=== PATIENT | male | born 1945 | race Caucasian/White ===

== ENCOUNTER 2017-12-01 06:12 | Day surgery (SDC) | payer OTHER ==
[~2017-12-01] VITALS: Ht 172.7 cm; Wt 68.0 kg
[2017-12-01] MEDS ORDERED: FLUT1INH INH (06:53)
[2017-12-01] MEDS ORDERED: ASPI-183 PO (06:53)
[2017-12-01] MEDS ORDERED: AMLO5TAB2 PO (06:53)
[2017-12-01] MEDS ORDERED: NORC5TAB (06:53)
[2017-12-01] MEDS ORDERED: TUMS500C CHEW (06:53)
[2017-12-01 07:00] VITALS: BP 137/80; PULSE 72; RESP 18; TEMP 97.5; O2SAT 99
[2017-12-01] MEDS ORDERED: SODIUM CHLOR 0.45% 1000 ML INJ 1,000 ML IV SCH (07:30)
[2017-12-01] MEDS ORDERED: RESP: LIDOCAINE HCL 4% PF 5 ML NEB NEB SCH (07:30)
[2017-12-01] MEDS ORDERED: LACTATED RINGER'S 1000 ML IV PRN (07:30)
[2017-12-01] MEDS ORDERED: INSULIN HUMAN REGULAR 1,000 UNITS/10 ML VIAL SQ PRN (07:30)
[2017-12-01] MEDS ORDERED: POVIDONE IODINE 5% (ANTISEPSIS KIT) 4 APPLICATIONS EACH NARE PRN (07:30)
[2017-12-01] MEDS ORDERED: SODIUM CHLORID 0.9% 500 ML IV PRN (07:30)
[2017-12-01] MEDS ORDERED: CHLORHEXIDINE GLUCONATE 2 % 1 PACK (2 CLOTHS) TOPICAL PRN (07:30)
[2017-12-01] MEDS ORDERED: RESP: ALBUTEROL 2.5 MG/3 ML NEB (SCH) INH (07:30)
[2017-12-01] MEDS ORDERED: METOPROLOL TARTRATE 25 MG TAB PO PRN (07:30)
[2017-12-01 07:35] LABS: AUTOMATED NEUTROPHIL # 3.6 TH/MM3 (1.8-7.7); BASOPHIL % 0.6 % (0.0-2.0); EOSINOPHIL # 0.2 TH/MM3 (0-0.4); EOSINOPHIL % 2.7 % (0.0-4.0); HEMATOCRIT 46.8 % (39.0-51.0); HEMOGLOBIN 16.5 GM/DL (13.0-17.0); LYMPH % 27.6 % (9.0-44.0); LYMPHOCYTE # 1.6 TH/MM3 (1.0-4.8); MEAN CELL VOLUME 105.3 FL (80.0-100.0); MEAN CORPUSCULAR HEMOGLOBIN 37.2 PG (27.0-34.0); MEAN CORPUSCULAR HGB CONC 35.3 % (32.0-36.0); MEAN PLATELET VOLUME 7.9 FL (7.0-11.0); MONO % 8.2 % (0.0-8.0); MONOCYTE # 0.5 TH/MM3 (0-0.9); NEUT % 60.9 % (16.0-70.0); PLATELET COUNT 184 TH/MM3 (150-450); RED BLOOD COUNT 4.45 MIL/MM3 (4.50-5.90); RED CELL DISTRIBUTION WIDTH 13.6 % (11.6-17.2); WHITE BLOOD COUNT 5.9 TH/MM3 (4.0-11.0)
[2017-12-01 07:48] LABS: PROTHROMBIN TIME - PATIENT 9.7 SEC (9.8-11.6)
[2017-12-01 08:05] LABS: BICARBONATE 25.1 MEQ/L (21.0-32.0); CALCIUM 9.2 MG/DL (8.5-10.1); CREATININE 1.1 MG/DL (0.60-1.30)
[2017-12-01] MEDS ORDERED: DO NOT ADM ANY ANTICOAGULANT DRUGS PRN (08:27)
--- NOTE | 2017-12-01 08:30 | MP ---
cc: Selma Hahn MD DATE OF OPERATION: 12/01/2017 PROCEDURE PERFORMED: Fiberoptic bronchoscopy flexible REASON FOR BRONCHOSCOPY: Hemoptysis, rule out underlying malignancy or chronic inflammatory process or other. PROCEDURE NOTE: Fiberoptic bronchoscopy performed via LMA. Vocal cords are intact. The trachea is mildly hyperemic. The dante is sharp. The right main stem bronchus, right upper, middle, and lower lobe, left main bronchus, left upper and lower lobe without obstruction or mass lesion seen. Some hyperemia of the left lower lobe noted, but no active bleeding identified. Washings from both sides of the tracheobronchial tree obtained for routine TB, fungal cultures, as well as cytological exam. Cytologic brush biopsies left lower lobe obtained for cytological exam. Procedure well tolerated. The patient transferred to the recovery room in stable condition. IMPRESSION: 1. Mild tracheobronchitis. 2. No obstruction, no mass lesion. 3. No active bleeding. 4. Samples obtained as above. 5. The procedure was well tolerated. 6. The patient was transferred to recovery in stable condition. Selma Hahn MD WWW/DL , 08:20 AM , 08:29 AM
[2017-12-01] MEDS ORDERED: *RESP: ALBUTEROL 2.5 MG/3 ML NEB (PRN) PERIprocedural Use ONLY NEB ONE (08:38)
[2017-12-01 09:00] VITALS: BP 118/76; PULSE 80; RESP 18; TEMP 97.5; O2SAT 94
[2017-12-01 09:15] VITALS: BP 136/83; PULSE 80; RESP 18; O2SAT 94
[2017-12-01 09:30] VITALS: BP 129/79; PULSE 74; RESP 18; O2SAT 94
--- NOTE | 2017-12-01 15:34 | EKG ---
Date Performed: 12/01/2017 Time Performed: 07:20:03 PTAGE: 72 years EKG: Sinus rhythm NORMAL ECG NO PREVIOUS TRACING DOCTOR: Hollis Barth Interpretating Date/Time 12/01/2017 15:23:42
== END 2017-12-01 10:00 | disposition home or self-care (01) ==
LOC: HROP 06:12 → HRIP 06:15 → HROP 10:00
PROVIDERS: ATTEND Internal Medicine Sleep Medicine
DX: R04.2 Hemoptysis (principal); J40 Bronchitis, not specified as acute or chronic; I10 Essential (primary) hypertension; J44.9 Chronic obstructive pulmonary disease, unspecified; F17.200 Nicotine dependence, unspecified, uncomplicated; Z01.810 Encounter for preprocedural cardiovascular examination; Z01.818 Encounter for other preprocedural examination
CPT/HCPCS: 00520; 31623; 80048; 85025; 85610; 85730; 87015; 87070; 87102; 87116; 87205; 87206; 88112; 88305; 93005; 94664; J3010; J7613